=== PATIENT | female | born 1950 | race Caucasian/White ===

== ENCOUNTER 2016-05-10 04:45 | Inpatient (IN) | payer OTHER, MEDICARE ==
[~2016-05-10] VITALS: Ht 165.1 cm; Wt 86.2 kg
[~2016-05-10 04:45] MED LIST: METOPROLOL TART25 M1 PO; PLAQUENIL200 M1 PO
[2016-05-10] MEDS ORDERED: ASPIRIN EC325 M2 PO (15:45)
[2016-05-10] MEDS ORDERED: MIRALAX17 G1 PO (15:45)
[2016-05-10] MEDS ORDERED: COLACE100 M1 PO (15:45)
--- NOTE | 2016-05-10 15:49 | Patient Discharge Instructions ---
Discharge Instructions General Discharge Information You were seen/treated for: Right knee pain You had these procedures: Right total knee replacement Watch for these problems: Increasing pain, redness, warmth, swelling. Inability to bear weight on right leg. Drainage of any type from incision. Fever greater than 101.5. Do not soak the wound: Yes No bath, but you may shower: Yes Special Instructions: Incision: Dry dressing. May shower. No baths. No ointments of any kind. Ice as needed. Bowel regimen: Colace and or MiraLAX Weight-bearing as tolerated Follow-up with Dr. Scherer in 6 weeks. Call office for fevers greater than 101.5, excessive drainage or inability to bear weight on operative extremity. Visiting nurse will change dressing. Diet Continue normal diet: Yes Recommended Diet: Regular Additional DIET Information: Advance as tolerated Activity Full Activity/No Limits: No Activity Self Limited: Yes Pounds, do NOT lift more than: 10 Acute Coronary Syndrome Inclusion Criteria At DC or during hospital stay patient has or had the following: ACS DIAGNOSIS No Discharge Core Measures Meds if any: Prescribed or Continued at Discharge Meds if any: NOT Prescribed or Continued at Discharge Congestive Heart Failure Inclusion Criteria At DC or during hospital stay patient has or had the following: CHF DIAGNOSIS No Discharge Core Measures Meds if any: Prescribed or Continued at Discharge Meds if any: NOT Prescribed or Continued at Discharge Cerebrovascular accident Inclusion Criteria At DC or during hospital stay patient has or had the following: CVA/TIA Diagnosis No Discharge Core Measures Meds if any: Prescribed or Continued at Discharge Meds if any: NOT Prescribed or Continued at Discharge Venous thromboembolism Inclusion Criteria VTE Diagnosis No VTE Type NONE VTE Confirmed by (Test) NONE Discharge Core Measures - Per Current guidelines, there needs to be overlap - treatment for the first 5 days of Warfarin therapy. - If discharged on Warfarin prior to 5 days of - overlap therapy, the patient will need to be - assessed for post discharge needs including - *Post discharge parental anticoagulation - *Warfarin and/or parental anticoagulation education - *Follow up date to check INR post discharge At least 5 days overlap therapy as Inpatient No Meds if any: Prescribed or Continued at Discharge Note: Overlap Therapy is Warfarin and Anticoagulant Meds if any: NOT Prescribed or Continued at Discharge
--- NOTE | 2016-05-10 15:50 | Admission Core Measures ---
Admission Meds I reviewed the following Meds: Current Medications Sig/Katt Start time Last Medication Dose Stop Time Status Admin Acetaminophen 975 MG ONCE 05/10 NR (Tylenol) 05/10 2358 Cefazolin Sodium 2,000 MG ONCE 05/10 NR (Kefzol-Ancef Inj) 05/10 2358 Hydroxychloroquine 200 MG BID 05/10 2199 UNVr Sulfate (Plaquenil 200MG Tab) Metoprolol Tartrate 25 MG DAILY 05/11 1000 UNVr (Lopressor) Oxycodone HCl 10 MG ONCE 05/10 0000 NR (Roxicodone) 05/10 2358 Acute Coronary Syndrome Inclusion Criteria ACS Diagnosis No Inpatient Core Measures LDL Reminder: If No, please order W/I first 24hr of stay Congestive Heart Failure Inclusion Criteria CHF Diagnosis No Cerebrovascular accident Inclusion Criteria CVA/TIA Diagnosis No Inpatient Core Measures Bedside Swallow Eval Reminder: If BSE failed, place ST order Antithrombotic Reminder: Order Antithrombotic Medication by end of day 2 Antithrombotic Reminder: Document Reason Antithrombotic Not ordered by end of day 2 AFIB/Flutter Reminder: If Present, add to problem list AFIB/Flutter Reminder: Order Anticoag Medication for pts with AFIB/Flutter Atherosclerosis Reminder: If Present, add to problem list LDL Reminder: If No, please order W/I first 24hr of stay PT Order Reminder: If No, please order Venous thromboembolism Inpatient Core Measures VTE Risk Factors: Age > 40, Surgery VTE Prophylaxis Ordered Inpt Mech & Pharm No Mech VTE prophylaxis d/t No contraindications No VTE Pharm Prophylaxis d/t No contraindications Inclusion Criteria - Per Current guidelines, there needs to be overlap - treatment for the first 5 days of Warfarin therapy. - Parenteral Anticoagulation (IV or SC) needs to be - given along with Warfarin therapy. VTE Diagnosis No VTE Type NONE VTE Confirmed by (Test) NONE Problem List As ranked by this Provider includes Assessment & Plan 1. Unilateral primary osteoarthritis, right knee HOME MEDS Home Med List Aspirin (Ecotrin*) 325 MG TABLET.DR 1 TAB PO BID ANTICOAGULATION Docusate Sodium (Colace) 100 MG CAPSULE 1 CAP PO BID CONSTIPATION Hydroxychlorquine (Plaquenil) 200 MG TABLET 1 TAB PO BID LUPUS (Reported) Metoprolol Tartrate 25 MG TABLET 1 TAB PO DAILY BP (Reported) Polyethylene Glycol 3350 (Miralax) 17 GRAM POWD.PACK 1 PAC PO DAILY CONSTIPATION
--- NOTE | 2016-05-10 15:54 | Surgical Discharge Summary ---
Visit Information Visit Dates Admission Date: 05/10/16 Discharge Date: 05/12/16 History of Present Illness Chief Complaint: Right knee pain Surgical History Pertinent Surgical History: non-contributory Psychosocial History What is Your Primary Language? [place]alander Review of Systems: See H&P Hospital Course Course Attending Physician: GARCIA MYERS MD Primary Care Physician: HOMER GREENE MD Hospital Course: Patient was admitted to the hospital on 05/10/2016 for an elective right total knee replacement. She tolerated the procedure well. She was transferred to a general surgical floor. Her diet was advanced and tolerated. Her vital signs were stable and within normal limits. She voided spontaneously. She was evaluated and treated by physical therapy. Her pain was well controlled. She was deemed appropriate for discharge. Allergies: Coded Allergies: No Known Allergies (05/04/16) Disposition Summary Disposition Principal Diagnosis: Right knee unilateral primary osteoarthritis Additional Diagnosis: None Discharge Disposition: home health services Discharge Instructions General Discharge Information Code Status: Full Code Patient's Diet: Regular, advance as tolerated Patient's Activity: Weight-bear as tolerated on right leg Follow-Up Instructions/Appts: Incision: Dry dressing. May shower. No baths. No ointments of any kind. Ice as needed. Bowel regimen: Colace and or MiraLAX Weight-bearing as tolerated Follow-up with Dr. Myers in 6 weeks. Call office for fevers greater than 101.5, excessive drainage or inability to bear weight on operative extremity. Visiting nurse will change dressing. Medications at Discharge Discharge Medications: Continue taking these medications: Metoprolol Tartrate (Metoprolol Tartrate) 25 MG TABLET 1 Tablet ORAL DAILY Hydroxychlorquine (Plaquenil) 200 MG TABLET 1 Tablet ORAL TWICE DAILY Start taking the following new medications: Aspirin (Ecotrin*) 325 MG TABLET.DR 1 Tablet ORAL TWICE DAILY Qty = 60 No Refills Docusate Sodium (Colace) 100 MG CAPSULE 1 Capsule ORAL TWICE DAILY Qty = 14 No Refills Polyethylene Glycol 3350 (Miralax) 17 GRAM POWD.PACK 1 Packet ORAL DAILY Qty = 7 No Refills Instructions: dissolve in water, DISCONTINUE USE IF YOU DEVELOP LOOSE STOOL OR DIARRHEA Morphine Sulfate (Ms Contin) 15 MG TABLET.ER 1 Tablet ORAL TWICE DAILY Qty = 12 No Refills Hydromorphone HCl (Dilaudid) 4 MG TABLET 1 Tablet ORAL EVERY 4 HOURS NEEDED as needed for PAIN Qty = 36 No Refills
[2016-05-10] MEDS ORDERED: MS CONTIN15 M2 PO (16:37)
[2016-05-10] MEDS ORDERED: DILAUDID4 M1 PO (16:37)
--- NOTE | 2016-05-10 16:51 | Operative Report ---
Operative/Inv Procedure Report Surgery Date: 05/10/16 Name of Procedure: 1. Right total knee replacement 2. Left knee cortisone injection Pre-Operative Diagnosis: Primary bilateral knee DJD Post-Operative Diagnosis: Same Estimated Blood Loss: 50ml to 100ml Surgeon/Shipfitter Helper: LOUIS NOBLE,GARCIA Chilel Anesthesia: block Operative/Procedure Note Note: Description of Procedure: The patient was taken to the operating room and positively identified. After induction of spinal anesthesia and administration of appropriate pre-operative antibiotics, the patient was positioned supine on the operating room table and all bony prominences were well padded. The left knee was prepped sterilely and injected with a mixture of 2 mL of Depo- Medrol and 8 mL of half percent Marcaine. A Band-Aid was placed over the injection site and attention was turned to the contralateral limb. A well-padded pneumatic tourniquet was placed on the right upper thigh. After performing a surgical timeout, the IT lower extremity was prepped and draped in the usual sterile fashion. After exsanguination with Esmarch the tourniquet was inflated to 250mm of mercury. A standard medial parapatellar approach was made to the knee. This was carried down through skin and subcutaneous tissue to the level of the fascia. Meticulous hemostasis was maintained with Bovie electrocautery. The extensor mechanism and patellar retinaculum were opened sharply and the patella was everted. The infrapatellar fat was resected in order to improve exposure. Osteophytes were trimmed from the patella and femoral condyles and the patella was re-everted and tucked laterally. A medial release was performed and the cruciate ligaments were resected. The tibia was then subluxed anteriorly. Utilizing the appropriate extra-medullary guide, the proximal tibia was trimmed perpendicular to the long axis of the tibial shaft. Attention was then turned to the femur. After opening the medullary canal, the distal femoral cut was made in 6 degrees of valgus utilizing the appropriate intra-medullary guide. The extension gap was checked and found to be appropriate. The femur was then sized and the remainder of the femoral cuts were made with a size 5 4-in-1 femoral cutting guide. The flexion gap was checked and found to be symmetric and appropriate. The knee was then trialed with a size 5 femoral component, a size 4 tibial component and a size 13 mm TS polyethylene insert. The patella was trimmed to accept an A 35 patella. This yielded excellent range of motion, stability and patellar tracking. All trial components were removed and the knee was copiously irrigated with sterile saline. All components were cemented into place with Mateo Simplex cement. All the components were of the [employer] Triathlon knee system of the above stated sizes. The knee was again irrigated after cementation. The extensor mechanism and patellar retinaculum were repaired using interrupted #1 vicryl suture. The skin was re-approximated with 2-0 vicryl and closed with mac. A sterile dressing was applied, the tourniquet was deflated, the patient was awakened and taken to the recovery room in satisfactory condition.
[2016-05-10 20:30] VITALS: BP 131/75
--- NOTE | 2016-05-10 20:30 | NUR ---
NURSING NOTE: PT ARRIVED TO FLOOR FROM PACU VIA BED BY DISTRIBUTION. VITAL SIGNS: 131/75, TEMP 97.5, HR 60, O2 98% ON ROOM AIR, AND RR 19. PT HAS NO COMPLAINTS OF PAIN. PT DENIES NUMBNESS AND TINGLING. +CMS, +PULSES. HARLAN WRAP TO R KNEE CDI. ICE PACK IN PLACE. ONCU PUMP TO R ADDUCTOR CANAL, ANAND, IV FLUIDS @ 75 ML/HR. PT DENIES N/V. PT SHOWN HOW TO USE CALL PISANO, INFORMATION PACKET GIVEN. AWAIT FURTHER ORDERS FROM SURGICAL PA. WILL CONTINUE TO MONITOR.
--- NOTE | 2016-05-10 22:39 | PN- Orthopedic ---
Subjective Subjective: poc s/p right tka comfortable denies cp, sob, no n+v Objective Vital Signs and I&Os Vital Signs Date Time Temp Pulse Resp B/P Pulse O2 O2 Flow FiO2 Ox Delivery Rate 05/10 2029 97.5 60 19 131/75 98 Room Air Physical Exam: cv: rrr lungs: clear abd: +bs, sfot ext: drsg dry onq in place distal cms intact Assessment/Plan Assessment/Plan ortho stable plan asa fro dvt prophylaxis oob with pt, wbat right le home d/c when cleared by pt in am Core Measures/Miscellaneous Venous Thromboembolism VTE Risk Factors: Age > 40, Obesity, Surgery VTE Contraindications: No Contraindications VTE Prophylaxis Ordered Inpt: Mech & Pharm VTE Diagnosis: No VTE Type: NONE VTE Confirmed by (Test): NONE Beta Joanna Is Beta Joanan a Home Med? Yes Antibiotics Is Patient on Antibiotics? Yes
[2016-05-11 00:33] VITALS: BP 128/62
--- NOTE | 2016-05-11 07:09 | PN- Orthopedic ---
Subjective Subjective: The patient was seen this morning postoperatively day #1. She reports that her pain is not adequately controlled with current pain regiment. Aside for her pain she has no other complaints at the current time and is eager to work with physical therapy. Objective Vital Signs and I&Os Vital Signs Date Time Temp Pulse Resp B/P Pulse O2 O2 Flow FiO2 Ox Delivery Rate 05/11 0033 97.8 79 20 128/62 97 Room Air 05/10 2029 97.5 60 19 131/75 98 Room Air Intake & Output 05/11 0800 05/11 0000 05/10 1600 05/10 0800 05/10 0000 05/09 1600 Intake Total 600 150 Output Total 450 250 Balance 150 -100 Intake, IV 600 150 Output, Urine 450 250 Patient 190 lb Weight Physical Exam: Gen.: Alert and complaining of pain Skin: Warm and dry Extremities: Bilateral lower extremities are warm without calf tenderness or significant edema. Gross motor and sensory are intact. Right knee dressing is clean, dry, and intact. His On-Q in place Assessment/Plan Assessment/Plan Assessment: 65-year-old female status post right total knee arthroplasty postoperative day #1 the patient is progressing as expected however her pain is not adequately controlled the current time. Plan: Add MS Contin by mouth twice a day and when necessary Toradol to current pain regiment Out of bed with physical therapy Hep-Lock IV fluids and DC Gao catheter GI and DVT prophylaxis Aspirin twice a day First dressing change tomorrow Core Measures/Miscellaneous Venous Thromboembolism VTE Risk Factors: Age > 40, Obesity, Surgery VTE Contraindications: No Contraindications VTE Prophylaxis Ordered Inpt: Mech & Pharm VTE Diagnosis: No VTE Type: NONE VTE Confirmed by (Test): NONE Beta Joanna Is Beta Joanna a Home Med? Yes Antibiotics Is Patient on Antibiotics? No
[2016-05-11 08:07] LABS: ABSOLUTE BASOPHIL COUNT 0 /CUMM (0.0-0.2); ABSOLUTE EOSINOPHIL COUNT 0 /CUMM (0.0-0.7); ABSOLUTE GRANULOCYTE CT 11.4 /CUMM (1.4-6.5); ABSOLUTE LYMPH COUNT 0.7 /CUMM (1.2-3.4); ABSOLUTE MONOCYTE COUNT 0.7 /CUMM (0.10-0.60); BASOPHIL % 0 % (0.0-2.0); EOSINOPHIL % 0 % (0-5); HEMATOCRIT 32.1 % (37-47); MEAN CORPUSCULAR HGB 28.7 PG (27.0-31.0); MEAN CORPUSCULAR HGB CONC 33.4 G/DL (33.0-37.0); MEAN CORPUSCULAR VOLUME 85.9 FL (81.0-99.0); MEAN PLATELET VOLUME 8.4 FL (7.4-10.4); PLATELET COUNT 170 /CUMM (130-400); RBC DISTRIBUTION WIDTH 13.7 % (11.5-14.5); RED BLOOD CELL CT 3.74 /CUMM (4.20-5.40)
[2016-05-11 08:09] LABS: GRANULOCYTE % 88.7 % (42.2-75.2)
[2016-05-11 08:12] VITALS: BP 130/80
[2016-05-11 09:36] LABS: WHITE BLOOD CELL COUNT 12.8 /CUMM (4.8-10.8)
--- NOTE | 2016-05-11 16:00 | NUR ---
PT HAS RT TOTAL KNEE DONE. MEDICATED PATIENT FOR PAIN. PT WAS ABLE TO EAT LUNCH. LUNGS ARE CLEAR THROUGHOUT. NO COUGH PRESENT. PT IS PASSING SOME FLATULUS MINIMAL BOWEL SOUNDS. +CMS TO RT LEG. DSG CDI. ON Q PUMP. IV WNL. INFORMED NEXT NURSE TO DILUTE MORPHINE FOR PAIN SINCE MORPHINE IRRITATED PT. IV WNL. GAVE PT NEW ICE PACK. CONTINUE TO MONITOR.
[2016-05-11 16:12] VITALS: BP 118/70
[2016-05-11 23:39] VITALS: BP 124/78
[2016-05-12 03:39] VITALS: BP 144/80
--- NOTE | 2016-05-12 07:38 | PN- Orthopedic ---
Subjective Subjective: pod#2 s/p right tka poor pain control rigt knee denies cp, sob, no n+v with diet Objective Vital Signs and I&Os Vital Signs Date Time Temp Pulse Resp B/P Pulse O2 O2 Flow FiO2 Ox Delivery Rate 05/12 0339 97.9 73 20 144/80 94 Room Air 05/11 2339 97.9 76 20 124/78 92 Room Air 05/11 1612 97.8 66 20 118/70 94 05/11 1103 62 142/84 05/11 0903 Room Air 05/11 0812 97.9 65 20 130/80 94 Room Air Intake & Output 05/12 0800 05/12 0000 05/11 1600 05/11 0800 05/11 0000 05/10 1600 Intake Total 420 600 150 Output Total 300 75 450 250 Balance -300 345 150 -100 Intake, IV 20 600 150 Intake, Oral 400 Output, Urine 300 75 450 250 Patient 190 lb Weight Physical Exam: cv: rrr lungs: clear abd: +bs, soft ext: drsg chnaged, wound c/d/i no calf tenderness bilat distal cms intact Assessment/Plan Assessment/Plan ortho stable plan titrate pain meds cont oob with pt asa for dvt phophylaxis plan for home d/c later today Core Measures/Miscellaneous Venous Thromboembolism VTE Risk Factors: Age > 40, Obesity, Surgery VTE Contraindications: No Contraindications VTE Prophylaxis Ordered Inpt: Mech & Pharm VTE Diagnosis: No VTE Type: NONE VTE Confirmed by (Test): NONE Beta Joanna Is Beta Joanna a Home Med? Yes Antibiotics Is Patient on Antibiotics? No
[2016-05-12 08:12] VITALS: BP 124/80
[2016-05-12 09:44] VITALS: BP 142/86
== END 2016-05-12 14:30 | disposition home health service (06) | DRG 470 ==
LOC: ENRESERVDT → ENRESERVTM → UNDOADMIN 04:45 → SDA 04:45 → 2NB 12:36 → ENPENDDIS 12:36 → SDA 12:36 → 2NB 20:15
PROVIDERS: Nurse Practitioner; ADMIT Orthopaedic Surgery
PROC: 3E0U3BZ Introduction of Anesthetic Agent into Joints, Percutaneous Approach (ICD-10-PCS; principal; 2016-05-10)
PROC: 3E0U33Z Introduction of Anti-inflammatory into Joints, Percutaneous Approach (ICD-10-PCS; principal; 2016-05-10)
PROC: 0SRC0J9 Replacement of Right Knee Joint with Synthetic Substitute, Cemented, Open Approach (ICD-10-PCS; principal; 2016-05-10)
DX: M17.0 Bilateral primary osteoarthritis of knee (principal); M32.9 Systemic lupus erythematosus, unspecified; E66.9 Obesity, unspecified; Z68.31 Body mass index [BMI] 31.0-31.9, adult; Z95.0 Presence of cardiac pacemaker; G47.33 Obstructive sleep apnea (adult) (pediatric); K21.9 Gastro-esophageal reflux disease without esophagitis; F17.210 Nicotine dependence, cigarettes, uncomplicated
CPT/HCPCS: 2NBSP; 82436; 87086; 88305; 90662; 97110-GO; 97116-GO; 97161-GP; 97530-GO; C1713; J0690; J1030; J1885; J2405; J2550; J2795; J7042